=== PATIENT | female | born 1970 | race Caucasian/White ===

== ENCOUNTER 2016-02-28 19:00 | Emergency (ER) | payer OTHER ==
--- NOTE | 2016-02-28 19:22 | PDOC ---
History of Present Illness - General History Source: Patient, Family, Primary Care Provider Exam Limitations: No Limitations - History of Present Illness Initial Comments: 02/28/16 20:32 The patient is a 45-year-old female with a significant past medical history of IDDM, hyperthyroidism (resection), hyperlipidemia, and constipation, who presents to the emergency department complaining of RLQ pain for the past 3 days. She reports associated constipation for 3 days, but denies nausea, vomiting, and diarrhea. She describes her abdominal pain as crampy and constant. The patient reports her pain is worsened upon movement and does not report any alleviating factors. The patient reports she has decreased appetite ( last meal 11:30 today). As per son, the patient presented to the hospital earlier today for a CT scan, during which she became faint and dizzy. As per family members, the patient was unable to complete her CT scan due to these symptoms. She reports a recent history of a UTI (02/26/16), 2 days ago (on Cipro) . The patient denies dysuria, frequency, urgency, and hematuria. The patient denies fever, chills, cough, or headache. Allergies: None reported. Past Surgical History: None reported. Family History: Gallbladder problems (Sister and aunt) Social History: Non-smoker. Denies alcohol or drug use. PCP: Dr. Gabriel Martinez ([phone]) <Kelli Burnett - Last Filed: 02/29/16 03:52> <Adriana Ruffin - Last Filed: 02/29/16 21:03> - General Stated Complaint: SOB DIZZINESS ABDOMINAL PAIN Time Seen by Provider: 02/28/16 19:21 Past History <Kelli Burnett - Last Filed: 02/29/16 03:52> - Past Medical History Anemia: Yes Asthma: No Cancer: No Cardiac Disorders: No CVA: No COPD: No CHF: No Dementia: No Diabetes: Yes (IDDM) GI Disorders: No Disorders: No HTN: No Hypercholesterolemia: Yes Liver Disease: No Seizures: No Thyroid Disease: Yes - Surgical History Abdominal Surgery: No Appendectomy: No Cardiac Surgery: No Cholecystectomy: No Lung Surgery: No Neurologic Surgery: No Orthopedic Surgery: No - Psycho/Social/Smoking Cessation Hx Anxiety: No Suicidal Ideation: No Smoking Status: No Smoking History: Never smoked Have you smoked in the past 12 months: No Number of Cigarettes Smoked Daily: 0 Hx Alcohol Use: No Substance Use Type: Alcohol Hx Substance Use Treatment: No <Adriana Ruffin - Last Filed: 02/29/16 21:03> - Past Medical History Allergies/Adverse Reactions: Allergies Allergy/AdvReac Type Severity Reaction Status Date / Time No Known Drug Allergies Allergy Verified 02/28/16 23:45 Home Medications: Ambulatory Orders Rosuvastatin [Crestor -] 10 mg PO HS #30 tablet 09/06/13 Ergocalciferol [Drisdol -] 50,000 units PO WEEKLY 02/28/16 Insulin Glargine,Hum.rec.anlog [Toujeo Solostar] 60 unit SQ HS 02/28/16 Lisinopril [Zestril] 2.5 mg PO DAILY 02/28/16 Losartan Potassium 25 mg PO DAILY 02/28/16 Review of Systems - Review of Systems Able to Perform ROS?: Yes Comments:: 02/28/16 20:32 GENERAL/CONSTITUTIONAL: No fever or chills. No weakness. HEAD, EYES, EARS, NOSE AND THROAT: No change in vision. No ear pain or discharge. No sore throat. CARDIOVASCULAR: No chest pain or shortness of breath. RESPIRATORY: No cough, wheezing, or hemoptysis. GASTROINTESTINAL: +RLQ abdominal pain, +constipation, +nausea, +vomiting. No diarrhea. GENITOURINARY: No dysuria, frequency, or change in urination. MUSCULOSKELETAL: No joint or muscle swelling or pain. No neck or back pain. SKIN: No rash NEUROLOGIC: +Dizziness. No headache, vertigo, loss of consciousness, or change in strength/sensation. ENDOCRINE: No increased thirst. No abnormal weight change. HEMATOLOGIC/LYMPHATIC: No anemia, easy bleeding, or history of blood clots. ALLERGIC/IMMUNOLOGIC: No hives or skin allergy. <Kelli Burnett - Last Filed: 02/29/16 03:52> *Physical Exam - Vital Signs Last Vital Signs Temp Pulse Resp BP Pulse Ox 98.7 F 95 H 16 118/70 99 02/28/16 19:10 02/28/16 19:10 02/28/16 19:10 02/28/16 19:10 02/28/16 19:10 - Physical Exam Comments: 02/28/16 20:36 GENERAL: Awake, alert, and fully oriented, in no acute distress HEAD: No signs of trauma EYES: PERRLA, EOMI, sclera anicteric, conjunctiva clear ENT: Auricles normal inspection, hearing grossly normal, nares patent, oropharynx clear without exudates. Moist mucosa NECK: Normal ROM, supple, no lymphadenopathy, JVD, or masses LUNGS: Breath sounds equal, clear to auscultation bilaterally. No wheezes, and no crackles HEART: Regular rate and rhythm, normal S1 and S2, no murmurs, rubs or gallops ABDOMEN: +Tenderness to palpation in the RLQ. +Minimal guarding, with no rebound. No flank pain. Normoactive bowel sounds. No masses EXTREMITIES: Normal range of motion, no pitting edema. No clubbing or cyanosis. No cords, erythema, or tenderness NEUROLOGICAL: Cranial nerves II through XII grossly intact. Normal speech, normal gait SKIN: Warm, Dry, normal turgor, no rashes or lesions noted. <Kelli Burnett - Last Filed: 02/29/16 03:52> Heart Score/ECG Review - ECG Impressions Comment:: 02/29/16 03:52 Vent. rate: 95 bpm IMPRESSION: Sinus rhythm with occasional premature ventricular complexes. <Kelli Burnett - Last Filed: 02/29/16 03:52> ED Treatment Course - LABORATORY CBC & Chemistry Diagram: 02/28/16 20:16 02/28/16 20:16 - ADDITIONAL ORDERS Additional order review: 02/28/16 20:16 RBC 5.51 H D MCV 68.2 L MCHC 30.6 L RDW 15.4 MPV 9.8 D Neutrophils % 81.4 Lymphocytes % 11.2 D Monocytes % 6.0 Eosinophils % 0.9 Basophils % 0.5 - RADIOLOGY Radiograph Interpretation: 02/29/16 00:11 EXAM: US Pelvis INTERPRETED BY: Dr. Jurado REVIEWED BY: Dr. Ruffin IMPRESSION: Fibroid uterus. Thickened endometrium measuring 2.4 cm in AP dimension with a trace of fluid in the endometrial cavity. On some of the images there is suggestion of a mass/polyp within the endometrial cavity measuring 2.5 x 2.4 cm versus a submucosal fibroid. Further evaluation with a sonohysterogram is recommended. Both ovaries appear unremarkable. EXAM: Abdomen/Pelvis CT INTERPRETED BY: Dr. Hayden REVIEWED BY: Dr. Ruffin IMPRESSION: The appendix is within normal limits in size. There is no periappendiceal inflammatory change. No evidence on this examination for acute appendicitis EXAM: Abdomen XR INTERPRETED BY: Dr. Jurado REVIEWED BY: Dr. Ruffin IMPRESSION: Findings consistent with constipation. [id number] diffuse air distention of the small bowel loops suggestive of ileus versus early/ partial distal small bowel obstruction. Correlate clinically and follow up is needed. 02/29/16 03:39 <Kelli Burnett - Last Filed: 02/29/16 03:52> - LABORATORY CBC & Chemistry Diagram: 02/28/16 20:16 02/28/16 20:16 <Adriana Ruffin - Last Filed: 02/29/16 21:03> Medical Decision Making - Medical Decision Making 02/28/16 22:34 Pt came to the hospital for an outpatient CT scan, but she got dizzy and appeared pale, so she was brought to the ER prior to CT scanning. Pt was diagnosed with a UTI 2 days ago, and she is being treated with cipro. Pt states that she has been having RLQ pain and her PMD is concerned that she may have appendicitis or other pathology in that region. Incidentally pt has a history of constipation. Recently she has been taking linzess meds for this. Last BM was 2 days ago. Pt is afebrile today and she has no nausea, but she has decreased appetite. We hydrated her in the ER, and she felt nauseous and vomited a bit after receiving morphine. Pt has no rebound of abd on exam but she has minimal guarding. She has no flank pain. Labs are normal, but we are awaiting UA. 02/29/16 00:22 Pt has fibroid uterus; no ovarian pathology on the right where she has pain. Appendix not visualized on sono. Abd XR shows constipation and some air fluid levels. Possible jamila or partial obstruction. CT pending. Pt is drinking contrast. 02/29/16 03:35 Patient Name: Lovely Martinez THIS IS A PRELIMINARY REPORT FROM [facility] EXAM: CT abdomen/pelvis with contrast IMAGES: 550 DATE OF SERVICE: 2016-02-29 02:41:55.0 REASON FOR EXAM: Right lower quadrant pain, rule out appendicitis COMPARISON: None FINDINGS: The appendix is within normal limits in size. There is no periappendiceal inflammatory change. No evidence on this examination for acute appendicitis. No free air There is hepatosplenomegaly. No obvious gallstones There is no hydronephrosis. There is moderately abundant stool noted in the colon. There is no evidence of intestinal obstruction. Urinary bladder is unremarkable. Fluid filled prominent endometrial cavity. Small cul-de-sac effusion. 02/29/16 21:01 Pt sent home as CT is normal, and she will continue her UTI meds. She is constipated and she has likely gas pain. Pt is stable for discharge and she will follow with her PMD. <Adriana Ruffin - Last Filed: 02/29/16 21:03> *DC/Admit/Observation/Transfer - Attestations Scribe Attestion: 02/28/16 20:37 Documentation prepared by Kelli Burnett, acting as medical front desk specialist for Adriana Ruffin MD. <Kelli Burnett - Last Filed: 02/29/16 03:52> - Discharge Dispostion Admit: No <Adriana Ruffin - Last Filed: 02/29/16 21:03> Diagnosis at time of Disposition: Constipation, Thickened endometrium, Uterine cyst - Discharge Dispostion Disposition: HOME Condition at time of disposition: Stable - Referrals Referrals: Gabriel Martinez MD [Primary Care Provider] - Willam Calderon MD [Staff Physician] -
[2016-02-28 19:28] VITALS: BP 118/70; PULSE 95; TEMP 98.7; BMI 38.7
[2016-02-28] MEDS ORDERED: LACTULOSE 20 GM/30 ML UDC (FOR ORAL USE ONLY) PO ONE (19:39)
[2016-02-28] MEDS ORDERED: SODIUM CHLORIDE 0.9% 500 ML INFUS.BAG IV ONE (19:39)
[2016-02-28] MEDS ORDERED: morphine CARPU-JECT 2 MG/1 ML DISP.SYRIN IVPUSH ONE (19:40)
[2016-02-28] MEDS ORDERED: LACTULOSE 20 GM/30 ML UDC (FOR ORAL USE ONLY) ONE (20:22)
[2016-02-28] MEDS ORDERED: morphine CARPU-JECT 2 MG/1 ML DISP.SYRIN ONE (20:22)
[2016-02-28 20:25] LABS: BASOPHIL 0.5 % (0-2.0); EOSINOPHIL 0.9 % (0-4.5); MCH 20.9 pg (25.7-33.7); MCHC 30.6 g/dl (32.0-36.0); MEAN CELL VOLUME 68.2 fl (80-96); MEAN PLT VOLUME 9.8 fl (7.5-11.1); NEUTROPHILS 81.4 % (42.8-82.8); PLATELET COUNT 206 K/MM3 (134-434); RDW 15.4 % (11.6-15.6); WHITE BLOOD COUNT 8.8 K/mm3 (4.0-10.0)
[2016-02-28 21:08] LABS: ALBUMIN 3.3 g/dl (3.4-5.0); AMYLASE 26 U/L (25-115); ANION GAP 9 (8-16); BILIRUBIN,TOTAL 0.3 mg/dL (0.2-1.0); CALCIUM 8.3 mg/dL (8.5-10.1); CO2 28 mmol/L (21-32); CREATININE 0.7 mg/dL (0.55-1.02); GLUCOSE,RANDOM 171 mg/dL (74-106); SGOT/AST 9 U/L (15-37); SGPT/ALT 15 U/L (12-78); TOT PROT 6.2 g/dl (6.4-8.2)
[2016-02-28 21:17] LABS: ALK PHOS 78 U/L (45-117); THYROID STIMULATING HORMONE 1.54 uIU/ml (0.358-3.74)
[2016-02-28 22:42] LABS: PLATELET ESTIMATE ADEQUATE (NORMAL)
[2016-02-28 22:43] LABS: HYPOCHROMIA 3+; MICROCYTOSIS 1+; POLYCHROMASIA 1+
[2016-02-29 01:58] LABS: URINE APPEARANCE CLEAR; URINE BILIRUBIN NEGATIVE (NEGATIVE); URINE COLOR STRAW; URINE GLUCOSE (UA) 1+ (NEGATIVE); URINE KETONE NEGATIVE (NEGATIVE); URINE NITRITE NEGATIVE (NEGATIVE); URINE PROTEIN NEGATIVE (NEGATIVE); URINE UROBILINOGEN NEGATIVE E.U./dl (0.2-1.0)
[2016-02-29 02:23] LABS: URINE BLOOD 1+ (NEGATIVE); URINE LEUK ESTERASE TRACE (NEGATIVE)
[2016-02-29 02:24] LABS: URINE MUCUS RARE; URINE RBC 1 /hpf (0-3); URINE WBC 1 /hpf (3-5)
[2016-02-29] MEDS ORDERED: POLYETHYLENE GLYCOL 3350 119 GM BTL PO ONE (03:40)
--- NOTE | 2016-03-04 11:54 | EKG ---
Test Reason : Blood Pressure : / mmHG Vent. Rate : 095 BPM Atrial Rate : 095 BPM P-R Int : 156 ms QRS Dur : 082 ms QT Int : 364 ms P-R-T Axes : 038 025 046 degrees QTc Int : 457 ms SINUS RHYTHM WITH OCCASIONAL PREMATURE VENTRICULAR COMPLEXES OTHERWISE NORMAL ECG WHEN COMPARED WITH ECG OF 05-SEP-2013 08:31, PREMATURE VENTRICULAR COMPLEXES ARE NOW PRESENT NONSPECIFIC T WAVE ABNORMALITY NOW EVIDENT IN ANTERIOR LEADS Confirmed by BASSEM KNOTT, LACI ([id number]) on 03/04/2016 11:54:37 AM Referred By: Confirmed By:LACI LUEVANO MD
== END 2016-02-29 04:07 | disposition home or self-care (01) ==
LOC: JER 19:00
PROC: 3E033NZ Introduction of Analgesics, Hypnotics, Sedatives into Peripheral Vein, Percutaneous Approach (ICD-10-PCS; principal; 2016-02-28)
DX: K59.09 Other constipation (principal); D25.9 Leiomyoma of uterus, unspecified; R93.8 Abnormal findings on diagnostic imaging of other specified body structures; N39.0 Urinary tract infection, site not specified; E11.9 Type 2 diabetes mellitus without complications; Z79.4 Long term (current) use of insulin; E78.00 Pure hypercholesterolemia, unspecified; E05.80 Other thyrotoxicosis without thyrotoxic crisis or storm
CPT/HCPCS: 36415; 74020-TC; 74177-TC; 76830-TC; 76856-TC; 80053; 81003; 81015; 82150; 83690; 84443; 84703; 85025; 87086; 93005; 93010; 99282-25

== ENCOUNTER 2016-08-04 07:31 | Day surgery (SDC) | payer OTHER ==
[2016-07-31 09:34] VITALS: BMI 38.7
[2016-08-04] MEDS ORDERED: MIDAZOLAM HCL 2 MG/2 ML SINGLE DOSE VIAL ONE (09:01)
[2016-08-04] MEDS ORDERED: PROPOFOL 20 ML ONE (09:01)
--- NOTE | 2016-08-04 09:03 | HP ---
History & Physical Update - History History: No Change - Physical Physical: No Change - Assessment Assessment: No Change - Plan Plan: No Change
--- NOTE | 2016-08-04 09:05 | OP ---
Operative Note - Note: Operative Date: 08/04/16 Pre-Operative Diagnosis: endometrial polyp. menorrhagia Operation: Hysteroscopic myomectomy. Suction DC Post-Operative Diagnosis: Same as Pre-op Anesthesia: General Estimated Blood Loss (mls): 3 Operative Report Dictated: Yes
[2016-08-04] MEDS ORDERED: ACETAMINOPHEN 325 MG TABLET (FP) PO PRN (09:06)
[2016-08-04] MEDS ORDERED: IBUPROFEN 400 MG TABLET (FP) PO PRN (09:06)
[2016-08-04] MEDS ORDERED: KETOROLAC TROMETHAMINE 30 MG/1 ML VIAL ONE (09:41)
[2016-08-04] MEDS ORDERED: oxyCODONE HCL 5 MG TABLET PO PRN (10:34)
[2016-08-04] MEDS ORDERED: ONDANSETRON 4 MG/2 ML VIAL IVPUSH PRN (10:34)
[2016-08-04] MEDS ORDERED: ACETAMINOPHEN 1000 MG/100 ML VIAL (NON FORMULARY) IVPB ONE (10:36)
[2016-08-04] MEDS ORDERED: LACTATED RINGERS SOLUTION 1,000 ML IV SCH (10:45)
[2016-08-04] MEDS ORDERED: ONDANSETRON 4 MG/2 ML VIAL ONE (11:55)
[2016-08-04 11:57] VITALS: TEMP 97.5
[2016-08-04 15:31] VITALS: BP 114/66; PULSE 76
--- NOTE | 2016-08-04 21:56 | OP ---
DATE OF OPERATION: 08/04/2016 PREOPERATIVE DIAGNOSIS: Abnormal uterine bleeding, submucosal myoma, leiomyomatous uterus. OPERATION: Hysteroscopic myomectomy and suction dilation and curettage. POSTOPERATIVE DIAGNOSIS: A scarred uterus due to previous endometrial ablation. ANESTHESIA: General. PROCEDURE: The patient was taken to the operating room, placed in dorsal lithotomy position, prepped and draped in the usual sterile fashion. Time-out was performed in accordance with hospital regulation. A speculum was placed in vagina, anterior lip of the cervix grasped with single-tooth tenaculum. The hysteroscope was then inserted and hysteroscopy was performed, and an obliterated endometrial cavity was seen. An anterior submucosal myoma was seen. Cutting and cautery of the submucous myoma was done. Portions of myoma were submitted to Pathology. The procedure was limited due to previous ablation and obliterated cavity. Suction D&C was then performed to remove further . Endometrial polyps were seen and removed. After all submucosal myoma could be removed (the procedure was, again, limited due to the endometrial cavity and history of ablation), all instruments were then removed. The patient tolerated procedure well. Estimated blood loss 30 mL. CAMMY WATSON M.D. [id number]
--- NOTE | 2016-08-06 16:23 | PATH ---
Surgical Pathology Report Patient Name: NIOM MONTENEGRO [facility]. Rec. #: [id number] /Age/Gender: 1970 (Age: 46) / F Account: [id number] Location: [facility] SURGICAL Taken: 08/04/2016 Received: 08/04/2016 Reported: 08/06/2016 Physicians: Pauline Mccormick M.D. Specimen(s) Received MYOMA Clinical History Fibroid Final Diagnosis MYOMA, HYSTEROSCOPIC MYOMECTOMY: FRAGMENTS OF BENIGN SMOOTH MUSCLE BENIGN OVERLYING ENDOMETRIUM COMPATIBLE WITH SUBMUCOSAL LEIOMYOMA. Electronically Signed Zach Funk M.D. Gross Description Received in formalin labeled "myoma" is a 2 g, 2.0 x 1.7 x 0.4 cm aggregate of zhou, irregular, firm to rubbery portions of tissue, consistent with portions of a morcellated fibroid. The specimen is entirely submitted in one cassette. /08/04/2016 saudi/08/04/2016
== END 2016-08-04 13:00 | disposition home or self-care (01) ==
LOC: JASU-SURG 07:31
PROVIDERS: ATTEND Obstetrics & Gynecology
PROC: 0UDB8ZX Extraction of Endometrium, Via Natural or Artificial Opening Endoscopic, Diagnostic (ICD-10-PCS; principal; 2016-08-04 09:00)
PROC: 0UB98ZZ Excision of Uterus, Via Natural or Artificial Opening Endoscopic (ICD-10-PCS; 2016-08-04 09:00)
DX: N93.9 Abnormal uterine and vaginal bleeding, unspecified (principal); D25.0 Submucous leiomyoma of uterus
CPT/HCPCS: 84703; 86850; 86900; 86901; 88305-TC; 94760

== ENCOUNTER → 2018-10-27 | Day surgery (SDC) | payer OTHER ==
[2018-10-25 12:03] VITALS: BMI 41.9
[~2018-10-27] MED LIST: BACITRACIN 15 GM TUBE TOPICAL OINTMENT ONE; BUPIVACAINE LIPOSOME/PF (EXPAREL) 266 MG/20 ML VIAL ONE; EPINEPHrine 1:1,000 1 MG/1 ML - 30ML VIAL (INJECTION) ONE; MIDAZOLAM HCL 2 MG/2 ML SINGLE DOSE VIAL ONE; SODIUM CHLORIDE 0.9% P/F 10 ML VIAL IJ ONE
[2018-10-27 07:04] VITALS: BP 126/75; PULSE 96; TEMP 98.3
== END | disposition home or self-care (01) ==
LOC: FASU 06:19
PROVIDERS: ATTEND Orthopaedic Surgery Sports Medicine
PROC: 0MQP4ZZ Repair Left Knee Bursa and Ligament, Percutaneous Endoscopic Approach (ICD-10-PCS; principal; 2018-10-27)
DX: Z53.09 Procedure and treatment not carried out because of other contraindication (principal); S83.512A Sprain of anterior cruciate ligament of left knee, initial encounter; X58.XXXA Exposure to other specified factors, initial encounter; Y93.9 Activity, unspecified; Y92.9 Unspecified place or not applicable
CPT/HCPCS: 82962; 84703

== ENCOUNTER 2021-03-31 22:00 | Inpatient (IN) | payer OTHER ==
[2021-03-31] MEDS ORDERED: AMPICILLIN SODIUM 250 MG VIAL IVPUSH ONE (22:30)
[2021-03-31] MEDS ORDERED: DOXYCYCLINE INJECTION 100 MG in DEXTROSE 5%-WATER 100 ML IVPB ONE (22:30)
[2021-03-31] MEDS ORDERED: AMPICILLIN SODIUM 2 GM VIAL ONE (22:44)
[2021-03-31] MEDS ORDERED: AMPICILLIN SODIUM 1 GM VIAL ONE (22:44)
[2021-04-01 01:20] LABS: BASO % 0.9 % (0-2.0); EOS % 3.5 % (0-4.5); HEMATOCRIT 35.6 % (32.4-45.2); HEMOGLOBIN 11.3 GM/dL (10.7-15.3); MCH 21.6 pg (25.7-33.7); MCHC 31.9 g/dl (32.0-36.0); MEAN CELL VOLUME 67.9 fl (80-96); MEAN PLT VOLUME 9.4 fl (7.5-11.1); MONO % 6.9 % (3.8-10.2); NEUT % 65.7 % (42.8-82.8); PLATELET COUNT 210 10^3/uL (134-434); RBC 5.24 M/mm3 (3.60-5.2); RDW 16.9 % (11.6-15.6); WHITE BLOOD COUNT 6.4 K/mm3 (4.0-10.0)
[2021-04-01 01:36] LABS: CALCIUM 8.5 mg/dL (8.5-10.1)
[2021-04-01 01:40] LABS: CREATININE 0.6 mg/dL (0.55-1.3)
[2021-04-01 01:41] LABS: BILIRUBIN,TOTAL 0.2 mg/dL (0.2-1)
[2021-04-01 01:43] LABS: TOT PROT 6.1 g/dl (6.4-8.2)
[2021-04-01] MEDS ORDERED: ACETAMINOPHEN 325 MG TABLET (FP) PO PRN (01:43)
[2021-04-01 04:19] VITALS: BMI 40.0
[2021-04-01] MEDS: INSULIN SLIDING SCALE (NOVOLOG) 1 VIAL SQ SCH ×4 (06:06→21:45)
[2021-04-01] MEDS ORDERED: DEXTROSE 5%-WATER - 50 ML IVPB ONE (09:53)
[2021-04-01] MEDS ORDERED: ceFAZolin SODIUM 1 GM VIAL ONE (09:53)
[2021-04-01] MEDS ORDERED: CEFAZOLIN 1 GM in DEXTROSE 5%-WATER - 1 GM/50 ML IVPB IVPB SCH (10:00)
[2021-04-01 10:24] LABS: BLOOD UREA NITROGEN 13.5 mg/dL (7-18); CALCIUM 8.6 mg/dL (8.5-10.1)
[2021-04-01 10:26] LABS: CREATININE 0.5 mg/dL (0.55-1.3)
[2021-04-01 10:28] LABS: BILIRUBIN,TOTAL 0.3 mg/dL (0.2-1); TOT PROT 5.8 g/dl (6.4-8.2)
[2021-04-01 11:15] LABS: BASO % 0.6 % (0-2.0); EOS % 3.1 % (0-4.5); HEMATOCRIT 34.2 % (32.4-45.2); HEMOGLOBIN 10.9 GM/dL (10.7-15.3); LYMPH % 17.5 % (8-40); MCH 21.8 pg (25.7-33.7); MCHC 31.9 g/dl (32.0-36.0); MEAN CELL VOLUME 68.3 fl (80-96); MEAN PLT VOLUME 9.8 fl (7.5-11.1); MONO % 6.7 % (3.8-10.2); NEUT % 72.1 % (42.8-82.8); PLATELET COUNT 190 10^3/uL (134-434); RBC 5.01 M/mm3 (3.60-5.2); RDW 16.8 % (11.6-15.6)
[2021-04-01] MEDS ORDERED: INSULIN (NOVOLOG) ASPART 100 UNITS/ML 10ML VIAL ONE ×2 (11:27→21:43)
[2021-04-01 12:34] LABS: ERYTHROCYTE SEDIMENTATION RATE 66 mm/hr (0-30)
[2021-04-01 13:09] LABS: ANISOCYTOSIS 1+
[2021-04-01] MEDS ORDERED: FUROSEMIDE 40 MG/4 ML INJECTABLE VIAL IVPUSH ONE (17:34)
[2021-04-01] MEDS: CEFAZOLIN 2 GM in DEXTROSE 5%-WATER - 100 ML IVPB SCH (20:05)
[2021-04-01] MEDS: ENOXAPARIN NA (PORCINE) 40 MG/0.4 ML DISP.SYRIN SQ SCH (21:45)
[2021-04-01] MEDS ORDERED: CYANOCOBALAMIN 1,000 MCG TABLET (FP) PO SCH (22:00)
[2021-04-01] MEDS ORDERED: ATORVASTATIN CA 20 MG TABLET (FP) PO SCH (22:00)
[2021-04-01] MEDS ORDERED: LOSARTAN POTASSIUM 25 MG TABLET PO SCH (22:00)
[2021-04-01] MEDS ORDERED: LORATADINE 10 MG TABLET PO SCH (22:00)
[2021-04-02] MEDS: CEFAZOLIN 2 GM in DEXTROSE 5%-WATER - 100 ML IVPB SCH ×2 (02:20→09:49)
[2021-04-02] MEDS: INSULIN SLIDING SCALE (NOVOLOG) 1 VIAL SQ SCH ×2 (06:37→11:34)
[2021-04-02] MEDS ORDERED: LEVOTHYROXINE NA 25 MCG TABLET (FP) PO SCH (07:00)
[2021-04-02] MEDS ORDERED: sitaGLIPtin PHOSPHATE 50 MG TABLET PO SCH (07:00)
[2021-04-02] MEDS ORDERED: FUROSEMIDE 40 MG/4 ML INJECTABLE VIAL IVPUSH ONE (08:45)
[2021-04-02 08:56] VITALS: PULSE 82
[2021-04-02] MEDS: ENOXAPARIN NA (PORCINE) 40 MG/0.4 ML DISP.SYRIN SQ SCH (09:16)
[2021-04-02 09:59] LABS: CALCIUM 8.4 mg/dL (8.5-10.1)
[2021-04-02 10:00] LABS: BLOOD UREA NITROGEN 15.6 mg/dL (7-18)
[2021-04-02 10:03] LABS: CREATININE 0.7 mg/dL (0.55-1.3)
[2021-04-02] MEDS ORDERED: INSULIN (LEVEMIR) 100 UNITS/ML UNITS SQ SCH (12:45)
[2021-04-02 14:21] VITALS: BP 115/49; TEMP 97.7
== END 2021-04-02 17:39 | disposition home or self-care (01) | DRG 383 ==
LOC: JER 22:00 → JERBED 04-01 01:20 → J6S 04-01 03:42
PROVIDERS: ADMIT Internal Medicine; ATTEND Family Medicine
DX: L03.116 Cellulitis of left lower limb (principal); E11.40 Type 2 diabetes mellitus with diabetic neuropathy, unspecified; L97.929 Non-pressure chronic ulcer of unspecified part of left lower leg with unspecified severity; E05.90 Thyrotoxicosis, unspecified without thyrotoxic crisis or storm; K59.00 Constipation, unspecified; I89.0 Lymphedema, not elsewhere classified
CPT/HCPCS: 36415; 71046-TC-FY; 73630-TC-LT; 73718-TC-LT; 80048; 80053; 80061; 82272; 82962; 83036; 84443; 85025; 85651; 86140; 86850; 86900; 86901; 86922; 87040; 93005; 93010; 93970-TC; 99285-25; C9803; U0003; U0005